=== PATIENT | male | born 1965 | race Caucasian/White ===

== ENCOUNTER 2017-01-15 08:02 | Emergency (ER) | payer MEDICAID, OTHER ==
[~2017-01-15] VITALS: Ht 177.8 cm; Wt 100.0 kg
[~2017-01-15 08:02] MED LIST: BENZ2TAB10 PO; CITA20TA9 PO; OMEP20 PO; OXCA300T PO; QUET100T PO; SIMV-259 PO
[2017-01-15] MEDS ORDERED: antihypertensive PO (08:16)
[2017-01-15] MEDS ORDERED: IBUPROFEN 600 MG TABLET PO ONE (10:30)
[2017-01-15 11:02] VITALS: BP 138/92
== END 2017-01-15 11:20 | disposition home or self-care (01) ==
LOC: EMS 08:04
DX: M25.561 Pain in right knee (principal); R03.0 Elevated blood-pressure reading, without diagnosis of hypertension; F32.9 Major depressive disorder, single episode, unspecified; F20.9 Schizophrenia, unspecified; K21.9 Gastro-esophageal reflux disease without esophagitis; F17.210 Nicotine dependence, cigarettes, uncomplicated
CPT/HCPCS: 29505; 99284

== ENCOUNTER 2017-10-26 13:56 | Emergency (ER) | payer OTHER ==
[~2017-10-26] VITALS: Ht 177.8 cm; Wt 90.9 kg
[~2017-10-26 13:56] MED LIST changes: +antihypertensive PO
[2017-10-26] MEDS ORDERED: LIDOCAINE HCL/PF 1% 2 ML VIAL IM ONE (16:30)
[2017-10-26] MEDS ORDERED: CefTRIAXone SODIUM 1 GM/VIAL IM ONE (16:30)
[2017-10-26] MEDS ORDERED: AZITHROMYCIN 250 MG TABLET PO ONE (16:30)
[2017-10-26] MEDS ORDERED: IBUPROFEN 800 MG TABLET PO ONE (16:30)
[2017-10-26] MEDS ORDERED: QUET200T PO (16:33)
[2017-10-26 18:16] LABS: APPEARANCE,URINE CLEAR (CLEAR); GLUCOSE, URINE (UA) NEGATIVE (NEGATIVE); KETONES,URINE NEGATIVE (NEGATIVE); LEUKOCYTE ESTERASE ,URINE SMALL (NEGATIVE); NITRATE,URINE NEGATIVE (NEGATIVE); OCCULT BLOOD,URINE NEGATIVE (NEGATIVE); PH,URINE 5.5 (5.0-8.0); PROTEIN,URINE TRACE (NEGATIVE); UROBILINOGEN,URINE 0.2 mg/dL (<=1.0)
[2017-10-26 18:19] VITALS: BP 147/89
[2017-10-26 18:29] LABS: BILIRUBIN,URINE PRELIM. POSITIVE (NEGATIVE)
[2017-10-26] MEDS ORDERED: CLOTRIMAZOLE 1% 15 GM CREAM TP ONE (18:30)
[2017-10-26 18:42] LABS: RBC,URINE 0-2 /HPF (0-2)
[2017-10-26 18:43] LABS: BACTERIA,URINE Rare /HPF (None Seen); MUCUS,URINE Moderate LPF (None Seen); SQUAMOUS EPITHELIAL CELL,UR Few /LPF (None Seen)
== END 2017-10-26 19:04 | disposition home or self-care (01) ==
LOC: EMS 13:57
DX: N48.1 Balanitis (principal); L29.9 Pruritus, unspecified; K21.9 Gastro-esophageal reflux disease without esophagitis; F17.210 Nicotine dependence, cigarettes, uncomplicated
CPT/HCPCS: 81001; 87086; 96372; 99284; J0696; J3490

== ENCOUNTER 2018-11-28 13:11 | Inpatient (IN) | payer MEDICAID, OTHER ==
[~2018-11-28] VITALS: Ht 175.3 cm; Wt 106.8 kg
[~2018-11-28 13:11] MED LIST changes: +CITA-106 PO; -CITA20TA9 PO; -OXCA300T PO; -QUET100T PO; +QUET200T PO; -SIMV-259 PO
[2018-11-28] MEDS ORDERED: QUET300T5 PO (14:08)
[2018-11-28] MEDS ORDERED: HALOPERIDOL 5 MG TABLET PO PRN (16:00)
[2018-11-28] MEDS ORDERED: ZOLPIDEM TARTRATE 10 MG TABLET PO PRN (16:00)
[2018-11-28] MEDS ORDERED: LORazepam 2 MG TABLET PO PRN (16:00)
[2018-11-28 20:00] VITALS: BP 129/87
[2018-11-28] MEDS ORDERED: ALBUTEROL SULFATE HFA 90 MCG/PUFF 8 GM INHALER IH PRN (21:00)
[2018-11-28] MEDS ORDERED: IBUPROFEN 400 MG TABLET PO PRN (21:00)
[2018-11-28] MEDS ORDERED: ONDANSETRON HCL 4 MG TABLET PO PRN (21:00)
[2018-11-28] MEDS ORDERED: LOPERAMIDE HCL 2 MG CAPSULE PO PRN (21:00)
[2018-11-28] MEDS ORDERED: MAG HYDROX/AL HYDROX/SIMETH ES 30 ML SUSPENSION UDCUP PO PRN (21:00)
[2018-11-28] MEDS ORDERED: GuaiFENesin/D-METHORPHAN [SUGAR-FREE] 200-20MG/10 ML SYRUP UDCUP PO PRN (21:00)
[2018-11-28] MEDS ORDERED: PETROLATUM,WHITE 28 GM JELLY TP PRN (21:00)
[2018-11-28] MEDS ORDERED: ACETAMINOPHEN 325 MG TABLET PO PRN (21:00)
[2018-11-28] MEDS ORDERED: DOCUSATE SODIUM 100 MG CAPSULE PO PRN (21:00)
[2018-11-28] MEDS ORDERED: NICOTINE 14 MG/24 HOUR PATCH TD PRN (21:00)
[2018-11-28] MEDS ORDERED: CloNIDine HCL 0.1 MG TABLET PO PRN (21:00)
[2018-11-28] MEDS ORDERED: MAGNESIUM HYDROXIDE SUSPENSION 30 ML UDCUP PO PRN (21:00)
[2018-11-29 09:28] VITALS: BP 137/72
[2018-11-29] MEDS ORDERED: DiphenhydrAMINE HCL 50 MG/ML VIAL ONE (12:25)
[2018-11-29] MEDS ORDERED: HALOPERIDOL LACTATE 5 MG/ML VIAL ONE (12:25)
[2018-11-29] MEDS ORDERED: LORazepam 2 MG/ML VIAL ONE (12:26)
[2018-11-29] MEDS ORDERED: DiphenhydrAMINE HCL 50 MG/ML VIAL IM ONE (12:30)
[2018-11-29] MEDS ORDERED: LORazepam 2 MG/ML VIAL IM ONE (12:30)
[2018-11-29] MEDS ORDERED: HALOPERIDOL LACTATE 5 MG/ML VIAL IM ONE (12:30)
[2018-11-29] MEDS ORDERED: OMEPRAZOLE 20 MG CAPSULE PO ONE (18:00)
[2018-11-29 18:41] VITALS: BP 147/88
[2018-11-29] MEDS: QUEtiapine FUMARATE 300 MG ER TABLET PO SCH (21:28)
[2018-11-30 09:23] VITALS: BP 128/86
[2018-11-30] MEDS: OMEPRAZOLE 20 MG CAPSULE PO SCH (09:27)
[2018-11-30 17:52] VITALS: BP 120/81
[2018-11-30] MEDS: QUEtiapine FUMARATE 300 MG ER TABLET PO SCH (20:29)
[2018-12-01 06:05] VITALS: BP 105/71
[2018-12-01 06:43] LABS: BASOPHILS % (AUTO) 0.5 % (0.0-2.0); EOSINOPHILS % (AUTO) 3.4 % (1.0-6.0); HEMATOCRIT 39.7 % (41-53); HEMOGLOBIN 12.8 g/dL (13.5-17.5); LYMPHOCYTES # (AUTO) 1.3 K/uL (1.0-4.8); LYMPHOCYTES % (AUTO) 22.2 % (22.0-44.0); MEAN CORPUSCULAR HEMOGLOBIN 23.7 pg (26.0-34.0); MEAN CORPUSCULAR HGB CONC 32.3 G/dL (31.0-37.0); MEAN CORPUSCULAR VOLUME 73 fL (80-100); MONOCYTES # (AUTO) 0.6 K/uL (0.1-1.0); MONOCYTES % (AUTO) 10.9 % (2.0-9.0); NEUTROPHILS # (AUTO) 3.7 K/uL (1.8-7.7); PLATELET COUNT (AUTO) 218 K/uL (150-450); RED CELL DISTRIBUTION WIDTH 17.5 % (11.5-14.5)
[2018-12-01 07:03] LABS: HEMOGLOBIN A1C 6.5 % (4.5-6.2)
[2018-12-01 07:17] LABS: ALANINE AMINOTRANSFERASE 24 U/L (12-78); ALBUMIN 3.3 g/dL (3.4-5.0); ALKALINE PHOSPHATASE 83 U/L (46-116); ANION GAP 9 mmol/L (8-16); ASPARTATE AMINOTRANSFERASE 19 U/L (15-37); BILIRUBIN,TOTAL 0.3 mg/dL (0.1-1.0); CALCIUM, TOTAL 8.6 mg/dL (8.8-10.5); CARBON DIOXIDE 27 mmol/L (22-29); CHLORIDE 101 mmol/L (98-107); CHOLESTEROL 129 mg/dL (131-200); CREATININE 1.05 mg/dL (0.60-1.30); GLOMERULAR FILTR. RATE CALC > 60 mL/min (>60); GLUCOSE,RANDOM 84 mg/dL (70-110); HDL CHOLESTEROL 32 mg/dL (40-60); LDL CHOL (CALC.) 78 mg/dL (0-130); SODIUM SERUM 137 mmol/L (136-145); THYROID STIMULATING HORMONE 2.91 uIU/mL (0.36-3.74); TOTAL PROTEIN, SERUM 6.5 g/dL (6.4-8.2); TRIGLYCERIDES 95 mg/dL (15-150); UREA NITROGEN, BLOOD 19 mg/dL (7-18)
[2018-12-01] MEDS: OMEPRAZOLE 20 MG CAPSULE PO SCH (08:50)
[2018-12-01 09:40] VITALS: BP 129/87
[2018-12-01] MEDS: BuPROPion HCL XL 150 MG ER TABLET PO SCH (12:52)
[2018-12-01 17:34] VITALS: BP 125/81
[2018-12-01] MEDS: QUEtiapine FUMARATE 300 MG ER TABLET PO SCH (21:14)
[2018-12-02] MEDS: OMEPRAZOLE 20 MG CAPSULE PO SCH (09:00)
[2018-12-02] MEDS: BuPROPion HCL XL 150 MG ER TABLET PO SCH (11:53)
[2018-12-02 19:12] VITALS: BP 113/84
[2018-12-02] MEDS: QUEtiapine FUMARATE 300 MG ER TABLET PO SCH (20:55)
[2018-12-03 08:26] VITALS: BP 129/81
[2018-12-03] MEDS: QUEtiapine FUMARATE 300 MG ER TABLET PO SCH (09:27)
[2018-12-03] MEDS: BuPROPion HCL XL 150 MG ER TABLET PO SCH (09:28)
[2018-12-03] MEDS: OMEPRAZOLE 20 MG CAPSULE PO SCH (09:28)
[2018-12-03 16:30] VITALS: BP 135/89
[2018-12-04] MEDS: BuPROPion HCL XL 150 MG ER TABLET PO SCH (08:46)
[2018-12-04] MEDS: OMEPRAZOLE 20 MG CAPSULE PO SCH (08:46)
[2018-12-04] MEDS ORDERED: BUPR-47 PO (10:35)
[2018-12-04] MEDS ORDERED: QUET300T5 PO (10:35)
[2018-12-04 13:23] VITALS: BP 144/76
== END 2018-12-04 14:30 | disposition home or self-care (01) | DRG 750 ==
LOC: EMS 13:15 → 3EI 17:47
DX: F20.0 Paranoid schizophrenia (principal); F11.10 Opioid abuse, uncomplicated; I10 Essential (primary) hypertension; K21.9 Gastro-esophageal reflux disease without esophagitis; F12.10 Cannabis abuse, uncomplicated; F17.200 Nicotine dependence, unspecified, uncomplicated; Z79.899 Other long term (current) drug therapy; Z71.51 Drug abuse counseling and surveillance of drug abuser
CPT/HCPCS: 83036; 84443; J1200; J1630; J2060

== ENCOUNTER 2018-12-11 14:34 | Emergency (ER) | payer MEDICAID, OTHER ==
[~2018-12-11] VITALS: Ht 177.8 cm; Wt 109.1 kg
[~2018-12-11 14:34] MED LIST changes: -BENZ2TAB10 PO; +BUPR-47 PO; -CITA-106 PO; -QUET200T PO; +QUET300T5 PO; -antihypertensive PO
[2018-12-11] MEDS ORDERED: ACETAMINOPHEN 325 MG TABLET PO ONE (15:15)
[2018-12-11] MEDS ORDERED: HYDROCODONE/ACETAMINOPHEN 10-325 MG TABLET PO ONE (16:45)
[2018-12-11 17:45] VITALS: BP 110/78
== END 2018-12-11 18:25 | disposition home or self-care (01) ==
LOC: EMS 14:37
DX: S52.572A Other intraarticular fracture of lower end of left radius, initial encounter for closed fracture (principal); S52.612A Displaced fracture of left ulna styloid process, initial encounter for closed fracture; S92.415A Nondisplaced fracture of proximal phalanx of left great toe, initial encounter for closed fracture; K21.9 Gastro-esophageal reflux disease without esophagitis; F32.9 Major depressive disorder, single episode, unspecified; F20.9 Schizophrenia, unspecified; F12.90 Cannabis use, unspecified, uncomplicated; F11.90 Opioid use, unspecified, uncomplicated; F17.210 Nicotine dependence, cigarettes, uncomplicated; Z79.899 Other long term (current) drug therapy; Y04.0XXA Assault by unarmed brawl or fight, initial encounter; Y93.89 Activity, other specified; Y92.89 Other specified places as the place of occurrence of the external cause; Y99.8 Other external cause status

== ENCOUNTER 2019-02-12 07:54 | Emergency (ER) | payer OTHER ==
[~2019-02-12] VITALS: Ht 177.8 cm; Wt 90.9 kg
[~2019-02-12 07:54] MED LIST changes: -OMEP20 PO
[2019-02-12 08:20] VITALS: BP 125/84
== END 2019-02-12 08:41 | disposition left against medical advice (07) ==
LOC: EMS 07:56
DX: F20.9 Schizophrenia, unspecified (principal); K21.9 Gastro-esophageal reflux disease without esophagitis; F32.9 Major depressive disorder, single episode, unspecified; F11.20 Opioid dependence, uncomplicated; F12.90 Cannabis use, unspecified, uncomplicated; F17.210 Nicotine dependence, cigarettes, uncomplicated; Z79.899 Other long term (current) drug therapy

== ENCOUNTER 2019-06-11 13:57 | Emergency (ER) | payer OTHER ==
[~2019-06-11] VITALS: Ht 177.8 cm; Wt 106.8 kg
[2019-06-11 16:25] VITALS: BP 123/89
== END 2019-06-11 16:29 | disposition home or self-care (01) ==
LOC: EMS 13:59
DX: L72.3 Sebaceous cyst (principal); K12.0 Recurrent oral aphthae; K21.9 Gastro-esophageal reflux disease without esophagitis; F32.9 Major depressive disorder, single episode, unspecified; F20.9 Schizophrenia, unspecified; F17.210 Nicotine dependence, cigarettes, uncomplicated; F12.90 Cannabis use, unspecified, uncomplicated; F15.90 Other stimulant use, unspecified, uncomplicated; F11.10 Opioid abuse, uncomplicated; Z79.899 Other long term (current) drug therapy; Z88.6 Allergy status to analgesic agent; Z88.8 Allergy status to other drugs, medicaments and biological substances

== ENCOUNTER → 2024-04-30 | Emergency (ER) | payer OTHER ==
[~2024-04-30] VITALS: Ht 172.7 cm; Wt 90.9 kg
[~2024-04-30] MED LIST changes: -BUPR-47 PO; +BUPR-49 PO; +IBUP-1492 PO
[2024-04-30 13:29] VITALS: TEMP 98.7
[2024-04-30] MEDS: IBUPROFEN 600 MG TABLET PO ONE (15:28)
[2024-04-30 15:35] VITALS: BP 109/65; PULSE 96; RESP 16; O2SAT 99
== END | disposition still patient (30) ==
LOC: EMS 13:21
DX: S93.402A Sprain of unspecified ligament of left ankle, initial encounter (principal); F32.A Depression, unspecified; F20.9 Schizophrenia, unspecified; K21.9 Gastro-esophageal reflux disease without esophagitis; F11.20 Opioid dependence, uncomplicated; F12.90 Cannabis use, unspecified, uncomplicated; F15.90 Other stimulant use, unspecified, uncomplicated; F17.210 Nicotine dependence, cigarettes, uncomplicated; X50.1XXA Overexertion from prolonged static or awkward postures, initial encounter; Y93.89 Activity, other specified; Y92.89 Other specified places as the place of occurrence of the external cause; Y99.8 Other external cause status
CPT/HCPCS: 99283